=== PATIENT | male | born 1975 | race Caucasian/White ===

== ENCOUNTER 2017-02-23 15:13 | Emergency (ER) | payer BC ==
[2017-02-23 15:35] VITALS: BP 135/61
--- NOTE | 2017-02-23 16:35 | UC ---
Eye Complaint HPI - History of Current Complaint Chief Complaint: Austyn Stated Complaint: EYE IRRIATION Time Seen by Provider: 02/23/17 16:34 - Allergies/Home Medications Allergies/Adverse Reactions: Allergies Allergy/AdvReac Type Severity Reaction Status Date / Time Nuts Allergy Anaphylatic Uncoded 02/23/17 15:35 Shock PMH/Surg Hx/FS Hx/Imm Hx Other History Of: Negative For: HIV, Hepatitis B, Hepatitis C, Anticoagulant Therapy - Surgical History Surgical History: None - Family History Known Family History: Negative: Cardiac Disease, Hypertension, Diabetes - Social History Alcohol Use: Occasionally Substance Use Type: None Smoking Status (MU): Never Smoked Tobacco Physical Exam Vital Signs: Initial Vital Signs Temp 98.0 F 02/23/17 15:30 Pulse 61 02/23/17 15:30 Resp 18 02/23/17 15:30 BP 135/61 02/23/17 15:30 Pulse Ox 100 02/23/17 15:30
--- NOTE | 2017-02-23 16:57 | UC ---
Epistaxis Nasal HPI - HPI Summary HPI Summary: 41 y/o male presents to the urgent care c/o sinus congestion w/ left side of nose and below the left eye swollen for the past 5 days. Pt states it is getting worse today. He had a recent sunburn over his nose which is now resolving. However he has yellowish nasal drainage and mild sinus pressure and pain. Pt denies fever,cough, SOB, chest pain, dizziness, abdominal pain, N/V/ D. Pt has not other complains. - History of Current Complaint Chief Complaint: UCSkin Stated Complaint: EYE IRRIATION Time Seen by Provider: 02/23/17 16:34 Hx Obtained From: Patient Onset/Duration: Gradual Onset, Lasting Days, Still Present Timing: Intermittent Episode Lasting Severity Initially: Mild Severity Currently: Moderate Pain Intensity: 2 Pain Scale Used: 0-10 Numeric Character: Light - yellowish drainage Alleviating Factor(s): Ice Associated Signs And Symptoms: Positive: Sinus Pain, Nasal Discharge - w/ yellowish discharge - Allergies/Home Medications Allergies/Adverse Reactions: Allergies Allergy/AdvReac Type Severity Reaction Status Date / Time Nuts Allergy Anaphylatic Uncoded 02/23/17 15:35 Shock PMH/Surg Hx/FS Hx/Imm Hx Previously Healthy: Yes Other Endocrine History: L[place] Respiratory History: Asthma Other History Of: Negative For: HIV, Hepatitis B, Hepatitis C, Anticoagulant Therapy - Surgical History Surgical History: None - Family History Known Family History: Positive: None Negative: Cardiac Disease, Hypertension, Diabetes - Social History Occupation: Employed Full-time Lives: With Family Alcohol Use: Occasionally Substance Use Type: None Smoking Status (MU): Never Smoked Tobacco Review of Systems Constitutional: Negative Skin: Negative Eyes: Negative ENT: Nasal Discharge, Sinus Congestion, Sinus Pain/Tenderness - B/L Respiratory: Negative Cardiovascular: Negative Gastrointestinal: Negative Genitourinary: Negative Motor: Negative Neurovascular: Negative Musculoskeletal: Negative Neurological: Negative Psychological: Negative All Other Systems Reviewed And Are Negative: Yes Physical Exam Triage Information Reviewed: Yes Appearance: Well-Appearing, No Pain Distress, Well-Nourished Vital Signs: Initial Vital Signs Temp 98.0 F 02/23/17 15:30 Pulse 61 02/23/17 15:30 Resp 18 02/23/17 15:30 BP 135/61 02/23/17 15:30 Pulse Ox 100 02/23/17 15:30 Vital Signs Reviewed: Yes Eye Exam: Normal Eyes: Positive: Conjunctiva Clear - PERRLA, EOMI, fundi grossly normal ENT: Positive: Normal ENT inspection, Hearing grossly normal, Pharynx normal, Nasal congestion - moderate edematous and erythematous nasal mucosa w/ moderate yellowish nasal drainage. tender to palaption matthew the maxillary sinus LF>RT. mild swelling over left maxillary sinusis, TMs normal Dental Exam: Normal Neck exam: Normal Neck: Positive: Supple, Nontender, No Lymphadenopathy Respiratory Exam: Normal Respiratory: Positive: Chest non-tender, Lungs clear, Normal breath sounds Cardiovascular Exam: Normal Cardiovascular: Positive: RRR, No Murmur, Pulses Normal, Brisk Capillary Refill Abdominal Exam: Normal Abdomen Description: Positive: Nontender, No Organomegaly, Soft. Negative: CVA Tenderness (R), CVA Tenderness (L) Bowel Sounds: Positive: Present Musculoskeletal Exam: Normal Musculoskeletal: Positive: Strength Intact, ROM Intact, No Edema Neurological Exam: Normal Psychological Exam: Normal Skin Exam: Normal Skin: Positive: Other - nose w/ mild erythema s/p sunburn, non tender to palpation. Epistaxis Nasal Course/Dx - Course Course Of Treatment: 41 y/o male presents to the urgent care c/o sinus congestion w/ left side of nose and below the left eye swollen for the past 5 days. Pt states it is getting worse today. He had a recent sunburn over his nose which is now resolving. However he has yellowish nasal drainage and mild sinus pressure and pain. Pt denies fever,cough, SOB, chest pain, dizziness, abdominal pain, N/V/D. Hx obtained. Pt w/ moderate sinusitis. Pt is going on a trip to [place] in requested [place] in case his sinusitis do not imporve. Pt Rx amoxicillin PO, Flonase and Ibuprofen PO to alleviate symptoms. Advised if symptoms do not improve or worsen to f/u w/ his PCP for further management. Pt understood and agreed. - Differential Dx/Diagnosis Differential Diagnosis/HQI/PQRI: Allergic Rhinitis, Sinusitis, Other - sunburn, pharyngits, URI. Provider Diagnoses: 1- acute bacterial sinusitis Discharge - Discharge Plan Condition: Stable Disposition: HOME Prescriptions: Amoxicillin/Clavulanate TAB* [Augmentin TAB 875*] 875 mg PO BID #20 tab Fluticasone NASAL SPRAY 50MCG* [Flonase NASAL SPRAY 50MCG*] 2 spray BOTH NARES DAILY #1 btl Ibuprofen TAB* [Motrin TAB* 800 MG] 800 mg PO Q6H #20 tab Patient Education Materials: Sinusitis (ED) Referrals: No Primary Care Phys,NOPCP [Medical Doctor] - [facility] [[facility]] - 2 Days Additional Instructions: Please take full course of antibiotic to avoid resistance. Take ibuprofen as instructed after meals to alleviate pain and swelling. If symptoms do not improve or worsen please return to the urgent care or f/u with your PCP for further evaluation and treatment.
== END 2017-02-23 17:07 | disposition home or self-care (01) ==
LOC: UCEAST 15:13
DX: J01.80 Other acute sinusitis (principal); B96.89 Other specified bacterial agents as the cause of diseases classified elsewhere; J45.909 Unspecified asthma, uncomplicated; Z91.018 Allergy to other foods; Z86.19 Personal history of other infectious and parasitic diseases
CPT/HCPCS: 99212; G0463

== ENCOUNTER 2017-02-25 07:15 | Emergency (ER) | payer BC ==
[2017-02-25 07:40] VITALS: BP 121/79
--- NOTE | 2017-02-25 08:40 | UC ---
Skin Complaint HPI - HPI Summary HPI Summary: 3 DAYS OF LEFT LOWER EYELID EDEMA. NO PAIN WITH EOM. NO FB SENSATION. NO EYE REDNESS OR IRRITATION. NO ALANIS, NAUSEA OR FEVER. NO VISUAL DISTURBANCE. DID SUSTAIN A BLISTERING SUNBURN TO HIS NOSE PRIOR TO ONSET OF SYMPTOMS. SEEN HERE 2 DAYS AGO AND IS ON AUGMENTIN FOR A SINUS INFECTION. - History of Current Complaint Chief Complaint: UCEye Time Seen by Provider: 02/25/17 07:27 Stated Complaint: SINUS COMPLAINT Hx Obtained From: Patient Onset/Duration: Gradual Onset, Lasting Days, Still Present Timing: Constant Onset Severity: Moderate Current Severity: Moderate Pain Intensity: 3 Pain Scale Used: 0-10 Numeric Character: Swelling Aggravating: Nothing Alleviating: Nothing Associated Signs & Symptoms: Negative: Nausea, Difficulty Breathing, Fever, Cough, Tenderness, Red Streaks - Allergy/Home Medications Allergies/Adverse Reactions: Allergies Allergy/AdvReac Type Severity Reaction Status Date / Time Nuts Allergy Anaphylatic Uncoded 02/25/17 07:36 Shock Review of Systems Constitutional: Negative Eyes: Other - LEFT LOWER EYELID SWELLING Cardiovascular: Negative Gastrointestinal: Negative All Other Systems Reviewed And Are Negative: Yes PMH/Surg Hx/FS Hx/Imm Hx Previously Healthy: Yes Other History Of: Negative For: HIV, Hepatitis B, Hepatitis C, Anticoagulant Therapy - Surgical History Surgical History: None - Family History Known Family History: Positive: None Negative: Cardiac Disease, Hypertension, Diabetes - Social History Alcohol Use: Occasionally Substance Use Type: None Smoking Status (MU): Never Smoked Tobacco Physical Exam Triage Information Reviewed: Yes Appearance: Well-Appearing, No Pain Distress, Well-Nourished Vital Signs: Initial Vital Signs Temp 36.6 F 02/25/17 07:37 Pulse 69 02/25/17 07:37 Resp 16 02/25/17 07:37 BP 121/79 02/25/17 07:37 Pulse Ox 97 02/25/17 07:37 Vital Signs Reviewed: Yes Eyes: Positive: Conjunctiva Clear, Other: - PERRL, EOMI. LEFT LOWER EYELID EDEMA. NO REDNESS, NOT TENDER. Negative: Discharge ENT: Positive: Hearing grossly normal, Pharynx normal Neck: Positive: Supple Respiratory: Positive: No respiratory distress, No accessory muscle use Cardiovascular: Positive: Pulses Normal Abdomen Description: Positive: Soft Musculoskeletal: Positive: ROM Intact Neurological: Positive: Alert Psychological: Positive: Age Appropriate Behavior Skin: Negative: rashes Course/Dx - Diagnoses Provider Diagnoses: LEFT LOWER EYELID EDEMA SECONDARY TO SUNBURN Discharge - Discharge Plan Condition: Stable Disposition: HOME Patient Education Materials: Sunburn (ED) Referrals: Gloria Cerna MD [Primary Care Provider] - If Needed Additional Instructions: THE SWELLING IN YOUR EYELID IS LIKELY THE RESULT OF THE SUNBURN YOU SUSTAINED AND YOUR BODY WILL RESORB THE FLUID WITH TIME. SEEK FOLLOW-UP IF YOU DEVELOP INCREASING SWELLING, REDNESS, PAIN, FEVER, EYE INVOLVEMENT OR ANY OTHER CONCERNING SYMPTOMS.
== END 2017-02-25 08:35 | disposition home or self-care (01) ==
LOC: UCEAST 07:15
DX: H02.845 Edema of left lower eyelid (principal); L55.9 Sunburn, unspecified; Z91.018 Allergy to other foods
CPT/HCPCS: 99211; G0463

== ENCOUNTER 2017-04-28 10:35 | Emergency (ER) | payer BC ==
[2017-04-28 11:06] VITALS: BP 120/82
--- NOTE | 2017-05-11 16:33 | UC ---
Benton Roth Angela, scribed for Etta Allen DO on 04/28/17 at 1129 . General HPI - HPI Summary HPI Summary: This pt is a 41 y/o male presenting to [facility] c/o sore throat, runny nose, cough x5 days. Pt reports he had strep throat (for 2 weeks) and was prescribed a Z- pack for 5 days. He was treated based on his symptoms. Pt notes his symptoms were alleviated and was fine for 3-4 days. For the past 5 days, pt states his symptoms have returned but this time they are a little different. Associated symptoms include scratchy throat, myalgia, sinus congestion, and cough. He notes he had difficulty sleeping last night (only sleeping 2 hours) secondary to cough. He states he feels fluid in his lungs. Pt denies bloody sputum. He notes his asthma has been exacerbated a little. Pt denies sinus headache, nausea , vomiting, abd pain, fever, chest pain. Pt reports having an eczema flare up recently. He states having sick contacts at home. No PMHx. Pt does not use tobacco. - History of Current Complaint Chief Complaint: UCRespiratory Stated Complaint: SOAR THROAT Time Seen by Provider: 04/28/17 11:26 Hx Obtained From: Patient Onset/Duration: Lasting Days Timing: Constant Pain Intensity: 3 - out of 10 Associated Signs & Symptoms: Positive: Cough, Other - runny nose, sore throat, sinus congestion, body ache, eczema. Negative: Abdominal Pain, Chest Pain, Diarrhea, Fever, Headache, Nausea, Vomiting Related Hx: Recent Illness - strep throat - Allergy/Home Medications Allergies/Adverse Reactions: Allergies Allergy/AdvReac Type Severity Reaction Status Date / Time Nuts Allergy Anaphylatic Uncoded 04/28/17 11:06 Shock PMH/Surg Hx/FS Hx/Imm Hx Other Endocrine History: DENIES: diabetes Other Cardiovascular History: DENIES: HTN Other History Of: Negative For: HIV, Hepatitis B, Hepatitis C, Anticoagulant Therapy - Surgical History Surgical History: None - Family History Known Family History: Negative: Cardiac Disease, Hypertension, Diabetes - Social History Alcohol Use: Occasionally Substance Use Type: None Smoking Status (MU): Never Smoked Tobacco Review of Systems Constitutional: Negative Skin: Other - eczema flare up Eyes: Negative ENT: Sore Throat, Nasal Discharge - runny nose, Sinus Congestion, Other - NEG: sinus headache Respiratory: Cough Cardiovascular: Negative Gastrointestinal: Negative Genitourinary: Negative Motor: Negative Neurovascular: Negative Musculoskeletal: Myalgia - generalized body ache Neurological: Negative Psychological: Negative All Other Systems Reviewed And Are Negative: Yes Physical Exam Triage Information Reviewed: Yes Appearance: Well-Appearing, No Pain Distress, Well-Nourished Vital Signs: Initial Vital Signs Temp 97.7 F 04/28/17 11:00 Pulse 54 04/28/17 11:00 Resp 16 04/28/17 11:00 BP 120/82 04/28/17 11:00 Pulse Ox 100 04/28/17 11:00 Vital Signs Reviewed: Yes Eyes: Positive: Conjunctiva Clear. Negative: Discharge ENT: Positive: Hearing grossly normal, Other: - normal voice. Negative: Muffled /hoarse voice Neck exam: Normal Neck: Positive: Supple Respiratory: Positive: Lungs clear, Normal breath sounds, No respiratory distress, No accessory muscle use Cardiovascular: Positive: RRR, No Murmur Musculoskeletal Exam: Normal Neurological: Positive: Alert, Muscle Tone Normal Psychological Exam: Normal Psychological: Positive: Age Appropriate Behavior Skin Exam: Normal Skin: Positive: Other - warm, dry, normal color Course/Dx - Course Course Of Treatment: Medications reviewed this visit. High blood pressure noted. Rapid strep test is negative. - Differential Dx - Multi-Symptom Provider Diagnoses: Elevated BP without diagnosis of HTN. Upper respiratory infection Discharge - Discharge Plan Condition: Stable Disposition: HOME Prescriptions: Benzonatate CAP* [Tessalon 100 MG CAP*] 100 mg PO TID PRN #31 cap PRN Reason: Cough guaiFENesin ER TAB [Mucinex*] 600 mg PO BID PRN #1 box PRN Reason: Cough guaiFENesin/CODIEN 100MG-10MG* [Robitussin AC 100Mg-10Mg*] 5 - 10 ml PO BEDTIME PRN #100 udc MDD 10ml PRN Reason: Cough Patient Education Materials: Upper Respiratory Infection (ED) Referrals: Gloria Cerna MD [Primary Care Provider] - Additional Instructions: TRY USING THE NETTI POT IN THE MORNINGS DISCUSSED. YOU MUST ALWAYS USE CLEAN WATER. COUGH-SUPPRESSANT & EXPECTORANT MEDICATION: You are to use a cough medication as needed for relief of symptoms. This medicine is a combination of an expectorant (to make the mucous thinner and more easily "coughed up") and a cough suppressant (to reduce the frequency of coughing). The cough-suppressant medicine is related to narcotics. You may experience mild nausea and sleepiness. Some patients who are very sensitive to narcotics may have stomach pain from this medicine. Taking the medicine with food reduces these side effects. Do not drive or work with machinery until you know how this medicine affects you. The expectorant should have no side effects. Iodine-containing expectorants (such as organidin) should not be taken by persons with active thyroid disease unless approved by your doctor. Call the doctor if you develop shortness of breath, hives, rash, itching, lightheadedness, or severe nausea and vomiting. EXPECTORANT MEDICATION: WE SENT IN A SCRIPT FOR MUCINEX SO THAT IT IS EASIER FOR YOU TO PICK THE RIGHT MED AT THE PHARMACY. HOWEVER, YOU CAN ALSO GO TO THE [employer] [facility] AND BUY PLAIN GUAIFENESIN WITHOU BINDERS OR FILLERS. An expectorant medicine has been prescribed. This type of drug makes mucous thinner, helping the sinuses, nose, and bronchial tubes to remain free of pus and mucous. Expectorants make a cough less severe and more comfortable, and help infected sinuses drain. In general, antihistamines defeat the purpose of the expectorant by making mucous thicker. They should be avoided unless specifically recommended by your physician. TESSALON PERLES: You have received a prescription for Tessalon Perles (benzonatate). This is a non-narcotic medicine for relief of cough. It usually works in about 15- 20 minutes and lasts around four hours. Tessalon Perles should be swallowed. They should not be chewed or dissolved in the mouth (this can produce temporary numbing of the mouth and choking can occur). If you develop any adverse effects such as wheezing, shortness of breath, hives, rash, itching, or lightheadedness, please return at once. YOUR RAPID STREP WAS NEGATIVE. Your blood pressure was elevated at this visit. That does not mean you have hypertension, it is probably due to your current condition. Please follow up with your primary care provider. The documentation as recorded by the Benton briggs Angela accurately reflects the service I personally performed and the decisions made by me, Etta Allen DO.
== END 2017-04-28 12:34 | disposition home or self-care (01) ==
LOC: UCEAST 10:35
DX: J06.9 Acute upper respiratory infection, unspecified (principal); R03.0 Elevated blood-pressure reading, without diagnosis of hypertension
CPT/HCPCS: 87651; 99212; G0463

== ENCOUNTER 2017-10-02 12:54 | Inpatient (IN) | payer BC ==
[2017-10-02] MEDS ORDERED: Ondansetron INJ* 2 MG/ML VIAL IV ONE (14:51)
[2017-10-02] MEDS ORDERED: Morphine INJ* 4 MG/ML 1 ML SYRINGE (NEW SYRINGE VERSION) IV ONE (14:52)
[2017-10-02] MEDS ORDERED: Ondansetron ODT TAB* 4 MG ONE (15:21)
[2017-10-02] MEDS ORDERED: Ondansetron ODT TAB* 4 MG PO ONE (15:22)
[2017-10-02 15:25] LABS: ABS Basophils 0 10^3/ul (0-0.2); ABS Eosinophils 0.1 10^3/ul (0-0.6); ABS Lymphocytes 0.6 10^3/ul (1.0-4.8); ABS Monocytes 0.4 10^3/ul (0-0.8); ABS Neutrophils 13.6 10^3/ul (1.5-7.7); ABS Nucleated RBC 0 10^3/ul; Eosinophil % 0.6 % (0-6); Hematocrit 42 % (42-52); Hemoglobin 14.6 g/dl (14.0-18.0); Lymphocyte % 4.1 % (25-47); Mean Corpuscular HGB Conc 35 g/dl (31-36); Mean Corpuscular Hemoglobin 32 pg (27-31); Mean Corpuscular Volume 91 fL (80-94); Mean Platelet Volume 9 um3 (7.4-10.4); Nucleated Red Blood Cells % 0; Platelet Count 197 10^3/ul (150-450); Red Blood Count 4.58 10^6/ul (4.0-5.4); Red Cell Distribution Width 14 % (10.5-15); White Blood Count 14.7 10^3/ul (3.5-10.8)
[2017-10-02 15:52] LABS: EGFR Non-African American 82.9 (>60)
[2017-10-02] MEDS ORDERED: Iohexol 300* (CONTRAST) 10 ML SDV IV ONE (15:59)
[2017-10-02] MEDS ORDERED: HYDROmorphone INJ* 1 MG/ML CARPUJECT SYRINGE IV SLOW PU ONE (16:39)
--- NOTE | 2017-10-02 16:41 | RAD ---
INDICATION: Fall, back, left upper quadrant pain. COMPARISON: Comparison is made with a prior CT of the abdomen and pelvis from December 04, 2011. TECHNIQUE: A CT scan of the chest, abdomen and pelvis was performed with intravenous and without oral contrast following intravenous injection of 99 ml of Omnipaque 300 nonionic contrast. Contiguous axial sections were obtained from the lung apices through the symphysis pubis. Images were reconstructed in the coronal and sagittal planes. FINDINGS: There is mild dependent bilateral lower lobe subsegmental atelectasis. No pleural effusion or pneumothorax is seen. No significant enlarged mediastinal or hilar lymph nodes are seen. The heart is within normal limits in size. No pericardial effusion is present. The aorta is normal in caliber and demonstrates homogeneous contrast opacification. The liver and spleen are normal in size without significant focal abnormality. No calcified gallstones are seen. The pancreas appears to be within normal limits in size. The kidneys and adrenal glands are normal in size. There is no evidence for hydronephrosis. No significant focal renal abnormality is seen. The aorta is normal in caliber and demonstrates homogeneous contrast opacification. No significant enlarged retroperitoneal lymph nodes are seen. There is a small hiatal hernia. The stomach, small and large bowel appear nondistended. The appendix appears to be within normal limits. No free intraperitoneal air or fluid is seen. There is a burst fracture of the T12 vertebral body with loss of height of approximately 25%. There is mild retropulsion of fracture fragments into the anterior spinal canal approximately 4 mm. There is also a mild chronic compression fracture of the superior endplate of the T4 vertebral body. IMPRESSION: 1. BURST FRACTURE OF THE T12 VERTEBRAL BODY WITH MILD RETROPULSION OF FRACTURE FRAGMENTS INTO THE ANTERIOR SPINAL CANAL. 2. NO EVIDENCE FOR ACUTE INTRA-ABDOMINAL ABNORMALITY.
--- NOTE | 2017-10-02 16:43 | ED ---
Adult Trauma - HPI Summary HPI Summary: 42-year-old male presents with back pain after falling off a ski jump and landed on his back. Her was snow boarding and went off a jump wrong. He denies any head injury or loss conscious. Denies any neck pain. He states he has lower back pain radiates to the front of his abdomen. He denies any lower or upper extremity pain. He states he landed on his lower back and tailbone. States pain is greatest in the lower back. He denies any numbness or tingling. He denies any loss of bowel or bladder or saddle anesthesia. He was able to ambulate afterwards. He states he is an 10 out of 10 pain. He denies any chest pain or SOB. He has no medical conditions. He denies any nausea or vomiting. - History of Current Complaint Chief Complaint: EDGeneral Stated Complaint: FALL Time Seen by Provider: 10/02/17 14:42 Pain Intensity: 9 - Allergy/Home Medications Allergies/Adverse Reactions: Allergies Allergy/AdvReac Type Severity Reaction Status Date / Time nut - unspecified Allergy Severe Anaphylatic Verified 10/02/17 15:16 Shock PMH/Surg Hx/FS Hx/Imm Hx Endocrine/Hematology History: Denies: Hx Anticoagulant Therapy, Hx Diabetes, Hx Thyroid Disease Cardiovascular History: Denies: Hx Congestive Heart Failure, Hx Deep Vein Thrombosis, Hx Hypertension , Hx Myocardial Infarction, Hx Pacemaker/ICD Respiratory History: Reports: Hx Asthma - As a child--has not used an inhaler in "a while." Denies: Hx Chronic Obstructive Pulmonary Disease (COPD), Hx Lung Cancer, Hx Pneumonia, Hx Pulmonary Embolism GI History: Denies: Hx Gall Bladder Disease, Hx Gastrointestinal Bleed, Hx Ulcer, Hx Urosepsis History: Denies: Hx Kidney Stones, Hx Renal Disease Neurological History: Denies: Hx Dementia, Hx Migraine, Hx Seizures, Hx Transient Ischemic Attacks (TIA) Psychiatric History: Denies: Hx Anxiety, Hx Depression, Hx Schizophrenia, Hx Bipolar Disorder Infectious Disease History: No Infectious Disease History: Denies: History Other Infectious Disease, Traveled Outside the [place] in Last 30 Days - Family History Known Family History: Positive: None Negative: Cardiac Disease, Hypertension, Diabetes - Social History Alcohol Use: Occasionally Substance Use Type: Reports: None Smoking Status (MU): Never Smoked Tobacco Review of Systems Negative: Fever Negative: Chest Pain Negative: Shortness Of Breath Positive: Abdominal Pain Positive: Myalgia - back pain All Other Systems Reviewed And Are Negative: Yes Physical Exam Triage Information Reviewed: Yes Vital Signs On Initial Exam: Initial Vitals Temp Pulse Resp BP Pulse Ox 97.8 F 66 24 106/51 100 10/02/17 13:23 10/02/17 13:23 10/02/17 13:23 10/02/17 13:23 10/02/17 13:23 Vital Signs Reviewed: Yes Appearance: Positive: Well-Appearing Skin: Positive: Warm, Dry Head/Face: Positive: Normal Head/Face Inspection, Other - no step off, racoon eyes, du sign Eyes: Positive: Normal, EOMI, KERVIN, Conjunctiva Clear ENT: Positive: Normal ENT inspection, Pharynx normal, TMs normal Neck: Positive: Other: - nontender neck, full ROM of neck Respiratory/Lung Sounds: Positive: Clear to Auscultation, Breath Sounds Present Cardiovascular: Positive: Normal, RRR Abdomen Description: Positive: Soft, Other: - tenderness LUQ Bowel Sounds: Positive: Present Musculoskeletal: Positive: Strength/ROM Intact - upper and lower extermities, Other - tenderness T10-L5, nontender lower extremities and upper extremities Neurological: Positive: Normal Psychiatric: Positive: Normal Diagnostics - Vital Signs Vital Signs Temp Pulse Resp BP Pulse Ox 10/02/17 15:37 86 97 10/02/17 15:35 16 10/02/17 13:23 97.8 F 66 24 106/51 100 - Laboratory Lab Results: Lab Results 10/02/17 10/02/17 Range/Units 15:13 15:13 WBC 14.7 H (3.5-10.8) 10^3/ul RBC 4.58 (4.0-5.4) 10^6/ul Hgb 14.6 (14.0-18.0) g/dl Hct 42 (42-52) % MCV 91 (80-94) fL MCH 32 H (27-31) pg MCHC 35 (31-36) g/dl RDW 14 (10.5-15) % Plt Count 197 (150-450) 10^3/ul MPV 9 (7.4-10.4) um3 Neut % (Auto) 92.4 H (38-83) % Lymph % (Auto) 4.1 L (25-47) % Sac % (Auto) 2.8 (0-7) % Eos % (Auto) 0.6 (0-6) % Baso % (Auto) 0.1 (0-2) % Absolute Neuts (auto) 13.6 H (1.5-7.7) 10^3/ul Absolute Lymphs (auto) 0.6 L (1.0-4.8) 10^3/ul Absolute Monos (auto) 0.4 (0-0.8) 10^3/ul Absolute Eos (auto) 0.1 (0-0.6) 10^3/ul Absolute Basos (auto) 0 (0-0.2) 10^3/ul Absolute Nucleated RBC 0 10^3/ul Nucleated RBC % 0 Sodium 135 (133-145) mmol/L Potassium 4.0 (3.5-5.0) mmol/L Chloride 100 L (101-111) mmol/L Carbon Dioxide 27 (22-32) mmol/L Anion Gap 8 (2-11) mmol/L BUN 19 (6-24) mg/dL Creatinine 0.99 (0.67-1.17) mg/dL Est GFR ( Amer) 106.6 (>60) Est GFR (Non-Af Amer) 82.9 (>60) BUN/Creatinine Ratio 19.2 (8-20) Glucose 118 H (70-100) mg/dL Calcium 9.4 (8.6-10.3) mg/dL Total Bilirubin 1.80 H (0.2-1.0) mg/dL AST 33 (13-39) U/L ALT 28 (7-52) U/L Alkaline Phosphatase 45 (34-104) U/L Total Protein 7.1 (6.4-8.9) g/dL Albumin 4.5 (3.2-5.2) g/dL Globulin 2.6 (2-4) g/dL Albumin/Globulin Ratio 1.7 (1-3) Result Diagrams: 10/02/17 15:13 10/02/17 15:13 Lab Statement: Any lab studies that have been ordered have been reviewed, and results considered in the medical decision making process. - CT chest, abd, pelvic CT Interpretation: Positive (See Comments) - IMPRESSION: 1. BURST FRACTURE OF THE T12 VERTEBRAL BODY WITH MILD RETROPULSION OF FRACTURE FRAGMENTS INTO THE ANTERIOR SPINAL CANAL. 2. NO EVIDENCE FOR ACUTE INTRA-ABDOMINAL ABNORMALITY. CT Interpretation Completed By: Radiologist Adult Trauma Course/Dx - Course Course Of Treatment: 42-year-old male presents with back pain after falling off a ski jump and landed on his back. Her was snow boarding and went off a jump wrong. He denies any head injury or loss conscious. Denies any neck pain. He states he has lower back pain radiates to the front of his abdomen. He denies any lower or upper extremity pain. He states he landed on his lower back and tailbone. States pain is greatest in the lower back. He denies any numbness or tingling. He denies any loss of bowel or bladder or saddle anesthesia. He was able to ambulate afterwards. He states he is an 10 out of 10 pain. He denies any chest pain or SOB. He has no medical conditions. He denies any nausea or vomiting. on exam nontender neck. tenderness T10-L5. tenderness LUQ abdomen. CT shows burst fracture T12. dr ramos seen in ED and states needs surgery. hospitalist do not feel comfortable admitting a trauma. discusssed with dr garnett who will admit. suggested get MRI and xray back. - Diagnoses Differential Diagnosis/HQI/PQRI: Positive: Contusion(s), Fracture, Strain Provider Diagnoses: Burst fracture of T12 vertebra, Fall Discharge - Discharge Plan Condition: Stable Disposition: ADMITTED TO [facility]
[2017-10-02] MEDS ORDERED: Metoclopramide IV* 5 MG/ML 2 ML VIAL IV SLOW PU ONE (16:52)
[2017-10-02] MEDS ORDERED: Metoclopramide IV* 5 MG/ML 2 ML VIAL ONE (16:52)
--- NOTE | 2017-10-02 20:36 | RAD ---
INDICATION: Trauma. COMPARISON: There are no prior studies available for comparison. TECHNIQUE: Contiguous axial sections were obtained from the skull base through the T2 vertebra. Images were reconstructed in the sagittal and coronal planes. FINDINGS: There is straightening of the cervical spine with loss of the normal cervical lordosis. No prevertebral soft tissue swelling or fracture is seen. At the C4-C5 level there is a small central disc protrusion. No spinal canal or neural foraminal narrowing is seen. At the C5-C6 level there is mild posterior uncinate process spurring associated with a mild broad-based disc bulge. No significant spinal canal or neural foraminal narrowing is seen. At the C6-C7 level there is mild posterior uncinate process spurring associated with a mild broad-based disc bulge. No significant spinal canal narrowing is present. There is mild bilateral neural foraminal narrowing. The thyroid gland is heterogeneous with several small nodules measuring up to 0.6 cm in size. IMPRESSION: 1. STRAIGHTENING OF THE CERVICAL SPINE, NO EVIDENCE FOR FRACTURE OR SUBLUXATION. 2. MILD CERVICAL SPONDYLOSIS. 3. SMALL THYROID NODULES. RECOMMEND A FOLLOW-UP OUTPATIENT THYROID ULTRASOUND STUDY FOR FURTHER EVALUATION.
--- NOTE | 2017-10-02 21:41 | RAD ---
INDICATION: Trauma, dorsal spine fracture. COMPARISON: Comparison is made with a prior CT of the cervical spine from October 02, 2017. TECHNIQUE: Axial T2 and sagittal T1 and T2 and coronal T2-weighted images of the cervical spine were obtained. FINDINGS: There is straightening of the cervical spine with decrease in the normal cervical lordosis. The vertebra otherwise in normal alignment. The spinal cord is normal in shape and signal intensity. At the C4-C5 level there is a mild broad-based disc bulge which causes mild spinal canal narrowing. Neural foramen appear patent on both sides. At the C5-C6 level there is a mild broad-based disc bulge. There is mild spinal canal narrowing. Neural foramen appear patent on both sides. At the C6-C7 level there is a [id number] broad-based disc bulge causing mild spinal canal narrowing. There is mild bilateral neural foraminal narrowing. At the C7-T1 level there is a small central disc protrusion. No significant spinal canal or neural foraminal narrowing is seen. IMPRESSION: 1. STRAIGHTENING OF THE CERVICAL SPINE. 2. MILD TO MODERATE CERVICAL SPONDYLOSIS.
[2017-10-02] MEDS ORDERED: HYDROcodone/ACETAMIN 5-325 MG* 1 TAB PO PRN (22:05)
[2017-10-02] MEDS ORDERED: Morphine INJ* 2 MG/ML 1 ML CARPUJECT IV PRN (22:06)
[2017-10-02] MEDS ORDERED: Acetaminophen TAB* 325 MG PO PRN (22:06)
[2017-10-02] MEDS ORDERED: HYDROmorphone INJ* 1 MG/ML CARPUJECT SYRINGE IV SLOW PU PRN (22:07)
--- NOTE | 2017-10-02 22:14 | RAD ---
INDICATION: T12 fracture. COMPARISON: Comparison is made with a prior CT of the chest and abdomen from October 02, 2017. TECHNIQUE: Axial and sagittal T1 and T2-weighted images of the dorsal spine were obtained. FINDINGS: There is a mild dorsal scoliosis convex toward the right side. Again note is made of a burst fracture of the T12 vertebral body with loss of height of approximately 25%. There is mild retropulsion of fracture fragments into the anterior spinal canal of approximately 4 mm. This effaces the anterior thecal sac and abuts the spinal cord without deformity. No epidural hematoma is seen. At the T9-T10 level there is a small to moderate size central disc protrusion which causes mild spinal cord impingement. No other significant disc abnormalities are seen. Neural foramen appear patent bilaterally at all levels. IMPRESSION: 1. THERE IS A BURST FRACTURE OF THE T12 VERTEBRAL BODY WITH MILD RETROPULSION OF FRACTURE FRAGMENTS INTO THE ANTERIOR SPINAL CANAL. 2. AT THE T9-T10 LEVEL THERE IS A SMALL TO MODERATE SIZE CENTRAL DISC PROTRUSION WHICH CAUSES MILD SPINAL CORD IMPINGEMENT.
[2017-10-02] MEDS ORDERED: HYDROmorphone INJ* 1 MG/ML CARPUJECT SYRINGE ONE (22:16)
[2017-10-02 22:42] LABS: INR 0.98 (0.77-1.02)
[2017-10-03] MEDS: HYDROmorphone INJ* 2 MG/ML CARPUJECT SYRINGE IV SLOW PU PRN ×2 (02:03→07:27)
--- NOTE | 2017-10-03 05:28 | HP ---
ADMISSION NOTE HISTORY AND PHYSICAL: DATE OF ADMISSION: 10/02/17 HISTORY OF PRESENT ILLNESS: The patient is a very pleasant 42-year-old gentleman without significant past medical history, who presented to the emergency room after reported to have sustained a fall while he was snowboarding and patient reports that he did the jump and he landed on his back. He did not hit his head. He did not lose his consciousness. He had significant back pain, but was able to ambulate and make it to the hospital. The patient denies any headache. Denies any nausea or vomiting. Denies any vision or speech problem. Denies any seizures. He denies any weakness, numbness or tingling of extremities. He denies any urinary or GI incontinence. He reports his feeling sensation is intact. He denies any pain in his cervical or lumbar spine and he denies any other pain. Requested to see the patient by emergency room because of CT scan finding consistent with a T12 burst fracture. The patient is accompanied by his . 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 They have 5 children. PAST MEDICAL HISTORY: The patient has negative except history of asthma as a child. PAST SURGICAL HISTORY: Negative. MEDICATIONS: Negative. ALLERGIES: PEANUT. No known drug allergies. FAMILY HISTORY: Noncontributory. SOCIAL HISTORY: Tobacco negative. Alcohol negative. Recreational use negative. PHYSICAL EXAMINATION GENERAL: The patient is not in acute distress. He is awake, alert, oriented x3. HEENT: His pupils are equal and reactive. NEUROLOGIC: Cranial nerves II through XII grossly intact. Motor 4 to 5/5 in lower extremities. Sensory grossly intact to light touch. Deep tendon reflexes +1 bilaterally. No clonus. No Babinski. Karen's negative. Straight leg raise negative in the sitting position. The patient has no tenderness to palpation of the cervical and lumbar spine. He has some mild tenderness in the lower thoracic spine. The patient has free range of motion of the cervical spine. His rectal tone is present and his perineal sensation is intact. The patient has free range of motion in all extremities without any tenderness to palpation. DIAGNOSTIC STUDIES/LABORATORY DATA: The patient had CT scan of his abdomen and pelvis that revealed a T12 burst fracture with minimal retropulsion with also horizontal splint configuration. ASSESSMENT: The patient is a very pleasant 43-year-old gentleman who was reporting to have sustained a fall while snowboarding with complaints of back pain and CT findings consistent with a T12 burst fracture. PLAN: The patient at this point has significant back pain. His TLICS score is 4. Because of the nature of his fracture and patient's complaint, we would offer the patient the option of surgical intervention in the form of thoracolumbar fusion. We discussed nonoperative and operative treatment options as well as a pros and cons of each approach and possible outcomes. After explaining to the patient and his expectations, limitations, and possible complications of the procedure with complications including, but not limited to bleeding, infection, risk of injury to adjacent structures, coma, paralysis, , need for additional procedure, anesthesia risk, stroke, blindness, cancer , instability, need for additional procedures in the future, loss of bladder or bowel control, loss of use of lower extremities, continued pain, kyphosis, need for additional procedure in a staged fashion, injury of abdominal contents, possible prolonged ICU stay. The patient and his were agreeable to proceed with surgery. They understand that his condition may not improve, and in fact may get worse after surgery. They also understand that he may need additional procedures in the future and possible anterior surgery if needed. We discussed the possibility of pseudoarthrosis and adjacent level disease. Also, patient called on his mobile phone and we discussed on the phone with Dr Staton who is a friend of the family regarding patient's condition. At this point, I will obtain CT scan of his cervical spine as well as MRI of the cervical spine as well as an MRI of his thoracic spine as well as plain x-rays of his thoracic and lumbar spine. We will be keeping the patient on spine precautions and we will plan for surgical intervention once we obtain Internal Medicine clearance. According to the emergency room, there are no other identified injuries at this point. Please do not hesitate to contact our office in case you have any further questions or concerns regarding the care of this patient. Su Mancia MD [id number]/[facility] #: [id number] RAVINDER
[2017-10-03 06:18] LABS: ABS Basophils 0 10^3/ul (0-0.2); ABS Eosinophils 0.3 10^3/ul (0-0.6); ABS Lymphocytes 1.6 10^3/ul (1.0-4.8); ABS Monocytes 0.5 10^3/ul (0-0.8); ABS Neutrophils 4.2 10^3/ul (1.5-7.7); ABS Nucleated RBC 0 10^3/ul; Eosinophil % 4.2 % (0-6); Hematocrit 41 % (42-52); Hemoglobin 13.9 g/dl (14.0-18.0); Lymphocyte % 24.2 % (25-47); Mean Corpuscular HGB Conc 34 g/dl (31-36); Mean Corpuscular Hemoglobin 31 pg (27-31); Mean Corpuscular Volume 92 fL (80-94); Mean Platelet Volume 9 um3 (7.4-10.4); Nucleated Red Blood Cells % 0; Platelet Count 202 10^3/ul (150-450); Red Blood Count 4.41 10^6/ul (4.0-5.4); Red Cell Distribution Width 14 % (10.5-15); White Blood Count 6.6 10^3/ul (3.5-10.8)
[2017-10-03 06:33] LABS: EGFR Non-African American 82.9 (>60)
--- NOTE | 2017-10-03 07:38 | RAD ---
INDICATION: T12 fracture. COMPARISON: Comparison is made with a prior CT of the chest, abdomen and pelvis from October 02, 2017. TECHNIQUE: 3 views of the lumbar spine were obtained including lateral, AP and a coned-down lateral view of the lumbar sacral junction. FINDINGS: There is a burst fracture of the T12 vertebral body with loss of height of approximately 25%. There is mild retropulsion of fracture fragments arising from the superior posterior aspect of the vertebral body. Disc spaces appear maintained. IMPRESSION: BURST FRACTURE OF THE T12 VERTEBRAL BODY.
--- NOTE | 2017-10-03 08:09 | RAD ---
INDICATION: T12 fracture. COMPARISON: Comparison is made with a prior CT of the chest from October 02, 2017. TECHNIQUE: AP and lateral films of the dorsal spine were obtained. FINDINGS: Again note is made of a burst fracture of the T12 vertebral body with loss of height of approximately 25%. There is mild retropulsion of fracture fragments into the anterior spinal canal better seen on the prior CT study. There is a round 4 cm density which projects just to the right of the midline over the mediastinum at the level of the aortic arch which was not present on the prior CT possibly external to the patient. IMPRESSION: 1. T12 BURST FRACTURE NOTED ON THE PRIOR CT STUDY. 2. ROUND DENSITY PROJECTED OVER THE MEDIASTINUM AT THE LEVEL OF AORTIC ARCH LIKELY EXTERNAL TO THE PATIENT ALTHOUGH NONSPECIFIC. RECOMMEND REPEATING THE DORSAL SPINE SERIES. THE RESULTS OF THIS EXAM WERE DISCUSSED WITH THE PATIENT'S NEUROSURGEON.
[2017-10-03] MEDS ORDERED: Bacitracin IV* 50,000 UNITS INJ ONE ×2 (08:26→15:26)
[2017-10-03] MEDS ORDERED: Thrombin 5,000 UNITS* 1 APPLIC KIT - topical use - TOPICAL ONE (08:26)
[2017-10-03] MEDS ORDERED: Lidocaine 1% MPF wEPI 200,000* 30 ML SDV ONE (08:26)
--- NOTE | 2017-10-03 08:52 | RAD ---
INDICATION: T12 burst fracture, abnormal density over the mediastinum. COMPARISON: Comparison is made with a prior dorsal spine series from one day earlier. TECHNIQUE: AP and lateral films of the dorsal spine were obtained. FINDINGS: The density which projected over the mediastinum on the prior chest x-ray study correlates with a necklace which was present on the initial films and then were removed and the film was repeated. Again note is made of a burst fracture at T12 vertebral body. IMPRESSION: 1. THE DENSITY WHICH PROJECTED OVER THE MEDIASTINUM IS AN ARTIFACT AND CORRELATED WITH THE PATIENT'S NECKLACE. 2. T12 BURST FRACTURE.
[2017-10-03] MEDS ORDERED: Levalbuterol 1.25MG/0.5ML NEB ONE (09:26)
[2017-10-03] MEDS ORDERED: Famotidine IV* 10 MG/ML 2 ML (20 mg) ONE (09:31)
[2017-10-03] MEDS ORDERED: Famotidine IV* 10 MG/ML 2 ML (20 mg) IV ONE (09:31)
[2017-10-03] MEDS ORDERED: Levalbuterol 0.63MG/3ML NEB* UNIT OF USE INH ONE (09:31)
[2017-10-03] MEDS ORDERED: Artificial Tear OPHTH.OINT* 3.5 GM ONE (09:48)
[2017-10-03] MEDS ORDERED: Gelfoam Sponge SIZE 100* SPONGE ONE ×2 (09:50→09:52)
[2017-10-03] MEDS ORDERED: Propofol* 10 MG/ML 20 ML BTL IV PUSH ONE (09:54)
[2017-10-03] MEDS ORDERED: Phenylephrine INJ* 10 MG/ML 1 ML VIAL (10 MG) ONE (09:54)
[2017-10-03] MEDS ORDERED: Dexamethasone IV* 4 MG/ML 1 ML (4 MG) ONE (09:54)
[2017-10-03] MEDS ORDERED: Lidocaine 2% PF * 5 ML VIAL ONE (09:54)
[2017-10-03] MEDS ORDERED: fentaNYL* 50 MCG/ML 5 ML VIAL (250 MCG VIAL) ONE ×3 (09:54→17:20)
[2017-10-03] MEDS ORDERED: Ondansetron INJ* 2 MG/ML VIAL ONE ×2 (09:54→18:12)
[2017-10-03] MEDS ORDERED: Rocuronium* 10 MG/ML VIAL ONE ×3 (09:54→13:43)
[2017-10-03] MEDS ORDERED: KETAMINE HCL* 50 MG/ML 10 ML VIAL ONE (09:55)
[2017-10-03] MEDS ORDERED: Midazolam* 1 MG/ML 5 ML VIAL (5 MG) ONE (09:55)
[2017-10-03] MEDS ORDERED: ceFAZolin 2 GM (*##) 2 GM/100 ML BAG USE CEFA2SOL IVPB ONE ×3 (10:25→15:26)
--- NOTE | 2017-10-03 10:51 | RAD ---
INDICATION: Right chest pain evaluate for effusion. COMPARISON: Comparison is made with a prior CT of the chest from one day earlier. TECHNIQUE: A portable view of the chest was obtained. FINDINGS: Cardiac and mediastinal contours appear to be within normal limits. The lungs are underinflated and clear. No pleural effusion is seen. IMPRESSION: NO EVIDENCE FOR ACUTE FINDING.
--- NOTE | 2017-10-03 11:11 | RAD ---
Indication: Blunt abdominal trauma. Limited abdominal ultrasound was performed to evaluate for ascites. The liver is normal in size. No focal lesions or intrahepatic ductal dilatation is noted. No perihepatic ascites is noted. The gallbladder demonstrates no definite gallstones. Right lower quadrant demonstrates no evidence of free fluid. IMPRESSION: No evidence of ascites or free fluid is noted.
[2017-10-03] MEDS ORDERED: Midazolam* 1 MG/ML 2 ML VIAL (2 MG) ONE (11:35)
[2017-10-03] MEDS ORDERED: fentaNYL* 50 MCG/ML 2 ML VIAL (100 MCG VIAL) ONE (15:53)
[2017-10-03] MEDS ORDERED: HYDROmorphone INJ* 1 MG/ML CARPUJECT SYRINGE ONE (16:02)
[2017-10-03] MEDS ORDERED: Glycopyrrolate IV* 0.2 MG/ML 1 ML VIAL ONE (16:05)
[2017-10-03] MEDS ORDERED: Neostigmine Methylsulfate* 1 MG/ML 10 ML VIAL (1 mg/ml) ONE (16:05)
--- NOTE | 2017-10-03 16:45 | RAD ---
INDICATION: Thoracolumbar fusion COMPARISON: Lumbar spine October 02, 2017 FINDINGS: 11 minutes and 33 seconds of fluoroscopy were provided for the neurosurgical department. Fluoroscopic spot imaging of the thoracal lumbar spine were obtained for operative control. CPT II Codes: 6045F (fluoro time doc)
--- NOTE | 2017-10-03 16:46 | RAD ---
INDICATION: Thoracal lumbar fusion COMPARISON: Lumbar spine October 02, 2017 FINDINGS: 74.9 seconds of fluoroscopy were provided for the neurosurgical department. Fluoroscopic spot imaging of the spine were obtained for operative control. CPT II Codes: 6045F (fluoro time doc)
[2017-10-03] MEDS ORDERED: Naloxone* 0.4 MG/ML 1 ML VIAL IV PRN (17:06)
[2017-10-03] MEDS ORDERED: Ondansetron INJ* 2 MG/ML VIAL IV PRN (17:06)
[2017-10-03] MEDS ORDERED: Levalbuterol 0.63MG/3ML NEB* UNIT OF USE INH PRN (17:06)
[2017-10-03] MEDS: fentaNYL* 50 MCG/ML 2 ML VIAL (100 MCG VIAL) IV PRN ×3 (17:21→17:44)
--- NOTE | 2017-10-03 17:26 | CONS ---
AMENDED REPORT NOW INCLUDES DATE OF CONSULT - ESIGNED BEFORE ADJUSTMENTS CC: [facility]; Gloria Cerna MD * SURGICAL CONSULTATION REPORT: DATE OF CONSULT: 10/03/17 HISTORY OF PRESENT ILLNESS: I was contacted by the neurosurgery group to evaluate Mr. Krishnamurthy, a 42-year-old gentleman who was admitted to the emergency room yesterday with a diagnosis of T12 burst fracture after suffering a high speed fall off his snowboard. The patient had taken a ski jump and landed on his back. He got up, walked out. Denied any loss of consciousness. Did have back pain as well as right upper quadrant and right-sided pain. He ultimately presented to the emergency room hours later where he stated he had 10/10 pain, greatest at the lower back. Trauma workup included CT scan of the abdomen and pelvis and chest. Finding of T12 burst fracture was identified. No additional solid or hollow organ injury was identified in the abdomen and chest showed no rib fractures. The patient was admitted for this purpose. He was not on any anticoagulation. Patient does not take any medications. Patient was for planned OR today with the neurosurgery department, was taken down to the preoperative area where he was noted to continue to have right upper quadrant abdominal pain. Concern for undiagnosed injury secondary to the trauma was expressed by the anesthesia department and I was contacted for evaluation. PAST MEDICAL HISTORY: None. MEDICATIONS: None. ALLERGIES: He denies any drug allergies. REVIEW OF SYSTEMS: No headaches. He does have back pain. No shortness of breath. Some chest pain in the mid sternum extending towards the right side. No dysuria, no hematuria. Patient is on bed rest. PHYSICAL EXAM: Temperature 97.5, blood pressure 114/71, pulse of 64. He is alert and oriented x3, he is in no apparent distress. Head, ears, eyes, nose and throat: Normocephalic, atraumatic. Sclerae anicteric. Mucous membranes are moist. Lungs: Clear to auscultation bilaterally. Abdomen is soft, nondistended, tender at the right upper quadrant site extending towards the costal margin on the right side. No deformity is appreciated. No masses or hernias are noted. No CVA tenderness. Pelvis is stable. I did not examine his back. Rectal exam was not performed and extremities show no cyanosis, clubbing or edema. LABORATORY DATA/DIAGNOSTIC STUDIES: Patient's labs are reviewed, show white count 6.6, hematocrit went from 42 to 41 over the course of his admission. INR is less than 1. Chemistry panel within normal limits with the exception of a T- bili which is 2.3. CT scan reviewed of the abdomen and pelvis and chest. IMPRESSION: A 42-year-old gentleman 1 day status post snowboard accident with T12 burst fracture for a planned surgical intervention with spine surgery department. No additional evidence of abdominal trauma at this point. I believe the patient most likely is suffering with pain secondary to the accident as we would see on the day 1 following a fall like this. This was overall not a high speed injury and I feel the patient should most likely go forward with the neurosurgery procedure. Patient does have a mild elevation of his T. bili, it has risen, this may represent some injury and for this reason, I would like to obtain an ultrasound of the liver to check for fluid. If there is fluid in this site or in the pelvis, then the patient may be suffering with some hemoperitoneum and may require additional workup including CT scan. We would get a chest x-ray to rule out effusion in the chest, although I think this is unlikely. He can get an EKG for his chest pain. If there are no EKG changes and if there are no other changes, then I believe the patient should proceed with spinal surgery and will be cleared from my standpoint. This was discussed with the neurosurgery department as well as with the anesthesia department. TIME SPENT: Overall, 45 minutes was spent with patient going over the plan and also reviewing charts. [id number]/[facility] #: [id number] RAVINDER
[2017-10-03] MEDS ORDERED: HYDROmorphone INJ* 2 MG/ML CARPUJECT SYRINGE ONE (17:50)
[2017-10-03] MEDS: HYDROmorphone INJ* 1 MG/ML CARPUJECT SYRINGE IV PRN ×2 (17:57→18:05)
--- NOTE | 2017-10-03 18:31 | PN ---
Progress Note - Progress Note Date of Service: 10/03/17 SOAP: Subjective: []Patient seen earlier today. No complains ON. Objective: []AAOx3 KERVIN, CN II-XII grossly intact, Motor 5/5 all extremities Sensory grossly intact to light touch. BS equal bilaterally. S1,2 audible rythmic, no murmors Abdominal sounds wnl, Abdomen, soft, no tender, except mild tenderness rUQ. Assessment: []42 yom snowboarding accident, T12 fracture. Plan: []MRI of Thoracic spine confirmed T12 fracture with minimal retropulsion. CT/MRI c spine without evidence of injury, Discussed with Dr Infante earlier. No signs of trauma in CT C/A/P. Patient was seen by Dr Vasquez regarding RUQ tenderness, U/S , CXR, EKG neg. appreciated Dr Vasquez for input and clearance. Patient underwent T10-L2 posterolateral fusion and instrumentation. Tolerated procedure well. In Recovery Xavi well, Sensory grossly intact to light touch. Su Mancia MD
[2017-10-03] MEDS ORDERED: Metoclopramide IV* 5 MG/ML 2 ML VIAL ONE (18:43)
[2017-10-03] MEDS: Metoclopramide IV* 5 MG/ML 2 ML VIAL IV PRN (18:45)
--- NOTE | 2017-10-03 19:59 | PN ---
Progress Note - Progress Note Date of Service: 10/03/17 SOAP: Subjective: []Patient on regular floor. No complains of pain. Tolerated procedure well. Objective: []VSS AAOx3 CNII-XII grossly intact. Motor 5/5 all extremities. Sensory grossly intact to light touch. Assessment: []42 yom POD#0 T10-L2 posterolateral fusion for T12 # Plan: []Monitor VS, Neurochecks. Monitor PETER output. OOB with assistance. PT/OT IS. Su Mancia MD
[2017-10-03] MEDS: Morphine INJ* 2 MG/ML 1 ML CARPUJECT IV SCH ×2 (20:00→22:19)
[2017-10-04] MEDS: HYDROmorphone INJ* 2 MG/ML CARPUJECT SYRINGE IV SLOW PU PRN ×6 (00:30→21:59)
[2017-10-04] MEDS: Morphine INJ* 2 MG/ML 1 ML CARPUJECT IV SCH ×6 (00:36→07:44)
[2017-10-04] MEDS: Metoclopramide IV* 5 MG/ML 2 ML VIAL IV PRN ×3 (00:37→21:54)
[2017-10-04] MEDS ORDERED: Morphine INJ* 2 MG/ML 1 ML CARPUJECT IV PRN (09:13)
[2017-10-04] MEDS: HYDROcodone/ACETAMIN 5-325 MG* 1 TAB PO PRN ×4 (09:39→21:54)
--- NOTE | 2017-10-04 14:48 | OP ---
DATE OF OPERATION: 10/03/17 - ROOM #341 DATE OF : 75 SURGEON: Felix Mancia MD CO-SURGEON: Quintin Rosado MD NOTE: Operation was done with two attending physicians because of the complexity of the case. ANESTHESIA: General. PRE-OP DIAGNOSIS: T12 burst fracture. POST-OP DIAGNOSIS: T12 burst fracture. OPERATIVE PROCEDURE: Patient underwent a T10-L2 posterior pedicle screw instrumentation and posterolateral fusion with stereotactic intraoperative navigation. ESTIMATED BLOOD LOSS: 75 cc. COMPLICATIONS: None. SUMMARY: Patient is a very pleasant 42-year-old gentleman with reported history of fall while snowboarding. He fell on his back and CT scan findings revealed a T12 burst fracture with vertical split features and retropulsion into the canal. The patient, after discussion about nonoperative and operative treatment options as well as expectation, limitation, possible complications of the procedure, was offered the option of posterior thoracolumbar fusion. We discussed the details with the patient and his regarding complications including bleeding, infection, risk of injury to adjacent structures, paralysis , , need for additional procedures, anesthesia risk. DICTATION ENDS ABRUPTLY [id number]/[facility] #: [id number] MTDD
--- NOTE | 2017-10-04 14:56 | OP ---
DATE OF OPERATION: 10/03/17 - ROOM #341 DATE OF : 75 SURGEON: Felix Mancia MD. CO-SURGEON: Quintin Rosado MD NOTE: Operation was done with two attending physicians because of the complexity of the case. ANESTHESIA: General. PRE-OP DIAGNOSIS: T12 fracture. POST-OP DIAGNOSIS: T12 fracture. OPERATIVE PROCEDURE: The patient underwent a T10-L2 posterolateral fusion with pedicle screw instrumentation T10, T11, L1 and L2 with DBM putty and intraoperative stereotactic navigation. ESTIMATED BLOOD LOSS: 75 cc. COMPLICATIONS: None. SUMMARY: The patient is a very pleasant 42-year-old gentleman who was diagnosed with T12 burst fracture with canal retropulsion as well as split component, after a reported fall, while snowboarding. After explaining nonoperative and operative treatment options, the patient was offered the option of surgical intervention in the form of a posterior thoracolumbar fusion. After explaining expectation, limitations, possible complications of the procedure with complications including not limited to bleeding, infection, risk of injury to adjacent structures, paralysis, , need for additional procedure, anesthesia risk, blindness, cancer, instability, hardware failure, adjacent level disease with pseudoarthrosis, proximal junctional kyphosis, chronic pain and need for additional procedures in the future, anesthesia risks , the patient was agreeable to proceed with surgery. Informed consent was obtained. The patient and his understood that his condition may not improve and in fact may get worse after the surgery and that he may need to have additional procedures in the future. They understood that the operative plan may be modified according to the intraoperative findings and conditions. Prior to surgery, Dr Avina kindly examined the patient to ensure that no other injuries were present. DESCRIPTION OF PROCEDURE: The patient was brought to the operating room, was placed on general anesthetic by the anesthesia team. He was carefully positioned prone on Alexis table and all bony prominences were meticulously padded. His skin was prepped and draped in a sterile fashion. After appropriate surgical pause and patient identification, a midline incision was marked on the skin above the spinous processes of T9-L3. After infiltrating the skin with local anesthetic, a #10 surgical blade was used to incise the skin. The incision was carried down to the dorsal fascia with Bovie cautery. Self-retaining retractor was introduced right into the field and the dorsal fascia was divided in both sides of midline with Bovie cautery. The paraspinal musculature was elevated with Bovie cautery and periosteal elevator and self- retaining retractors were introduced further into the field. The lamina as well as the transverse processes were gently exposed and after securing the navigation star on the spinous process of L3, intraoperative CT was obtained with O-arm. The patient's data was transferred into the navigation platform and under stereotactic navigation and confirmation with AP fluoroscopy, the pedicles of L2, L1, T11 and T10 were cannulated and SoleCellPlytronic 6.5 x 45 pedicle screws were inserted. Intraoperative fluoroscopic imaging as well as O- arm imaging performed, and excellent placement of the hardware was confirmed with slightly medial position of the right T10 without breach into the spinal canal. It was elected to reposition the screw slightly laterally and after repositioning, O-arm imaging confirmed excellent placement of all hardware. The wound was copiously irrigated and after confirmation of meticulous hemostasis, the transverse processes and all exposed bony surfaces were carefully decorticated with high speed drill. DBM putty was used for bone grafting for posterolateral fusion between T10-L2. Two PETER drains were placed into the wound and were tunneled through separate stab wound incisions. The wound was then closed by layers with 0 interrupted sutures to approximate the dorsal fascia, 2-0 interrupted Vicryl sutures to approximate the subcutaneous tissue while the skin was covered with Dermabond. In the end of the procedure, all counts were reported to be correct. The patient remained hemodynamically stable throughout the case. At the end of the procedure, the patient was turned supine, was extubated and was transferred to Recovery in excellent condition, moving all extremities very well. The case was done with 2 attending physicians because of the complexity of the case. [id number]/[facility] #: [id number] RAVINDER
[2017-10-04] MEDS: Calcium Carbonate CHEW TAB* 500 MG (TUMS) PO PRN ×2 (17:37→21:52)
[2017-10-05] MEDS: HYDROcodone/ACETAMIN 5-325 MG* 1 TAB PO PRN ×4 (02:17→15:29)
[2017-10-05] MEDS: HYDROmorphone INJ* 2 MG/ML CARPUJECT SYRINGE IV SLOW PU PRN ×4 (02:18→23:16)
[2017-10-05] MEDS ORDERED: Magnesium Hydroxide LIQ* 30 ML UDC ONE (10:54)
[2017-10-05] MEDS: Magnesium Hydroxide LIQ* 30 ML UDC PO PRN ×2 (10:55→17:46)
[2017-10-05] MEDS: Docusate CAP* 100 MG PO SCH ×2 (11:01→20:22)
[2017-10-05] MEDS: Cyclobenzaprine TAB* 10 MG PO PRN ×2 (13:59→20:21)
--- NOTE | 2017-10-05 18:04 | PN ---
Progress Note - Progress Note Date of Service: 10/05/17 SOAP: Subjective: []POD # 2 C/O muscle spasms,incisional pain Still with moderate drain output Pt resting,requested not to be disturbed per nurse Objective: []Neuro intact Moderate drain output Assessment: [] Satis post op course Plan: []Cont to increase activity
[2017-10-05] MEDS: oxyCODONE/Acetamin 5/325 MG* TAB PO PRN (20:16)
[2017-10-06] MEDS: oxyCODONE/Acetamin 5/325 MG* TAB PO PRN ×6 (00:19→21:29)
[2017-10-06] MEDS: Cyclobenzaprine TAB* 10 MG PO PRN ×3 (05:17→21:29)
[2017-10-06] MEDS: HYDROmorphone INJ* 2 MG/ML CARPUJECT SYRINGE IV SLOW PU PRN (06:21)
[2017-10-06] MEDS ORDERED: Fluconazole 100 MG TAB* TAB PO ONE (07:42)
--- NOTE | 2017-10-06 07:46 | PN ---
Progress Note - Progress Note Date of Service: 10/06/17 SOAP: Subjective: []Feels better Up ambulating this AM Still with some muscular pain Objective: []Wound looks good Drainage decreased Drains removed Assessment: []Satis post op course Plan: []D/C per Dr. Naidu
[2017-10-06] MEDS: Docusate CAP* 100 MG PO SCH ×2 (08:49→21:29)
[2017-10-06] MEDS: Magnesium Hydroxide LIQ* 30 ML UDC PO PRN ×2 (09:03→17:44)
[2017-10-06] MEDS ORDERED: Morphine INJ* 2 MG/ML 1 ML CARPUJECT IV PRN (14:49)
[2017-10-06] MEDS: Calcium Carbonate CHEW TAB* 500 MG (TUMS) PO PRN (22:33)
[2017-10-07] MEDS ORDERED: Morphine INJ* 2 MG/ML 1 ML CARPUJECT IV PRN (00:08)
--- NOTE | 2017-10-07 00:43 | PN ---
Progress Note - Progress Note Date of Service: 10/07/17 SOAP: Subjective: []No events ON. Patient on regular floor. No complains of pain. Ambulates, Voids , Flatus +. Wants to go home. Drains removed yesterday. Objective: []VSS, Afebrile. Wound soft, clean, dry. AAOx3 CNII-XII grossly intact. Motor 5/5 all extremities. Sensory grossly intact to light touch. Assessment: []42 yom POD#4 T10-L2 posterolateral fusion for T12 # Plan: []Monitor VS, Neurochecks. OOB as tolerated. PT/OT XR of T/L spine in am DC planning. Su Mancia MD
[2017-10-07] MEDS: oxyCODONE/Acetamin 5/325 MG* TAB PO PRN ×6 (01:39→22:13)
[2017-10-07] MEDS: Cyclobenzaprine TAB* 10 MG PO PRN ×2 (05:46→12:02)
[2017-10-07] MEDS ORDERED: Ibuprofen TAB* 600 MG ONE (08:28)
[2017-10-07] MEDS: Docusate CAP* 100 MG PO SCH ×2 (08:39→19:55)
[2017-10-07] MEDS: Magnesium Hydroxide LIQ* 30 ML UDC PO PRN (08:39)
[2017-10-07] MEDS: Ibuprofen TAB* 600 MG PO PRN ×2 (08:40→16:07)
--- NOTE | 2017-10-07 09:01 | RAD ---
INDICATION: Postsurgical evaluation following posterior fixation to treat traumatic T12 vertebral body fracture. COMPARISON: Lumbar spine radiograph October 02, 2017 TECHNIQUE: 3 views of the thoracic spine and 3 views of the lumbar spine were obtained. FINDINGS: The patient is status post transpedicular posterior ruiz fixation of T10, T11, L1 and L2. The vertebral bodies are appropriately aligned in the AP and lateral projections. There is shortening of the T12 vertebral body consistent with the compression fracture seen on prior imaging. IMPRESSION: Anatomic alignment of transpedicular posterior ruiz fixation involving the lower thoracic and upper lumbar spine.
[2017-10-07] MEDS: Calcium Carbonate CHEW TAB* 500 MG (TUMS) PO PRN (15:07)
--- NOTE | 2017-10-07 19:33 | PN ---
Progress Note - Progress Note Date of Service: 10/07/17 SOAP: Subjective: []No events ON. Patient on regular floor. No complains of pain. Ambulates, Voids , Flatus +. Wants to go home. Objective: []VSS, Afebrile. Wound soft, clean, dry. AAOx3 CNII-XII grossly intact. Motor 5/5 all extremities. Sensory grossly intact to light touch. Assessment: []42 yom POD#4 T10-L2 posterolateral fusion for T12 # Plan: []Monitor VS, Neurochecks. OOB as tolerated. PT/OT XR of T/L spine revealed good placement of hardware, good alignment of spine. Will change flexeril to valium. DC planning. Su Mancia MD
[2017-10-07] MEDS ORDERED: Diazepam TAB(*) 5 MG ONE (19:52)
[2017-10-07] MEDS: Diazepam TAB(*) 5 MG PO PRN (19:55)
[2017-10-08] MEDS: Ibuprofen TAB* 600 MG PO PRN ×3 (00:06→16:08)
[2017-10-08] MEDS: oxyCODONE/Acetamin 5/325 MG* TAB PO PRN ×4 (02:12→14:14)
[2017-10-08] MEDS: Diazepam TAB(*) 5 MG PO PRN ×2 (04:02→12:21)
[2017-10-08] MEDS ORDERED: HYDROmorphone TAB* 2 MG PO PRN (04:44)
[2017-10-08] MEDS ORDERED: Omeprazole CAP* 20 MG PO SCH (06:00)
[2017-10-08] MEDS: Docusate CAP* 100 MG PO SCH (08:27)
--- NOTE | 2017-10-08 14:10 | RAD ---
HISTORY: Fall, closed head injury COMPARISONS: January 14, 2015 TECHNIQUE: Multiple contiguous axial CT scans were obtained of the head without intravenous contrast. FINDINGS: HEMORRHAGE/INFARCT: There is no hemorrhage or acute infarct. MASSES/SHIFT: There is no mass or shift. EXTRA-AXIAL SPACES: There are no extra-axial fluid collections. SULCI AND VENTRICLES: The sulci and ventricles are normal in size and position for the patient's stated age. CEREBRUM: There are no focal parenchymal abnormalities. BRAINSTEM: There are no focal parenchymal abnormalities. CEREBELLUM: There are no focal parenchymal abnormalities. VESSELS: The vessels are grossly normal. PARANASAL SINUSES: The paranasal sinuses are clear. ORBITS: The orbits are unremarkable. BONES AND SOFT TISSUE: No bone or soft tissue abnormalities are noted. OTHER: None IMPRESSION: NO ACUTE INTRACRANIAL PATHOLOGY.
[2017-10-08 15:40] VITALS: BP 123/98
--- NOTE | 2017-10-08 16:05 | PN ---
Progress Note - Progress Note Date of Service: 10/08/17 SOAP: Subjective: []No events ON. No complaints of pain. Ambulates, Voids, Flatus +. Wants to go home. Valium helped with muscle spasms. No need for IV meds ON. Objective: []VSS, Afebrile. Wound soft, clean, dry. AAOx3 CNII-XII grossly intact. Motor 5/5 all extremities. Sensory grossly intact to light touch. Assessment: []42 yom POD#5 T10-L2 posterolateral fusion for T12 # Plan: [] DC planning. Full instructions given to patient. Su Mancia MD
--- NOTE | 2017-10-10 13:46 | DS ---
DISCHARGE SUMMARY: DATE OF ADMISSION: 10/02/17 DATE OF DISCHARGE: 10/08/17 PROCEDURE: The patient underwent a T10-L2 posterolateral fusion with T10, T11, L1, L2 pedicle screw fixation. SUMMARY: The patient is a very pleasant 42-year-old gentleman, who was reported to have sustained an accident while snowboarding. The patient landed on his back and was complaining of severe back pain . The patient had no loss of consciousness. He came to the emergency room, where he was diagnosed w ith CT scan of the chest, abdomen, and pelvis with a T12 burst fracture with coronal split component. The patient was offered the option of surgical intervention after explaining nonoperative and opera tive treatment options as well as risks and benefits. After explaining expectations, indications, an d possible complications of the procedure with complication including but not limited to bleeding, in fection, risk of damage to adjacent structures, paralysis, , need for additional procedure, anes thesia risk, stroke, blindness, cancer, instability, , adjacent level disease, proximal junctio nal kyphosis, anesthesia risk. The patient and his were agreeable to proceed with surgery. Inf ormed consent was obtained. The patient was brought to the operating room on 10/07/17 and he underwe nt the above procedure. He tolerated the procedure well. He was able to be extubated and was transf erred to Recovery in excellent condition, moving all extremities. He was transferred to the regular floor. He was able to ambulate on postoperative day 1 with good pain control. He remained neurovasc ularly intact and he was able to have the ability to ambulate, void, and take p.o. His pain was unde r control with p.o. pain medication and on 10/08/17, was found to be ready to be discharged home. DISPOSITION: Home. Discharge instructions were given to the patient. The patient was given p.o. pain medication and was advised to follow up in our office for a wound check in approximately 7 to 10 days. Full instructio ns given to the patient. [id number]/[facility] #: [id number]
== END 2017-10-08 16:45 | disposition home or self-care (01) | DRG 304 ==
LOC: ED 12:54 → SSU 21:17
PROVIDERS: ADMIT Neurological Surgery; ATTEND Neurological Surgery
PROC: 0RGA0K1 Fusion of Thoracolumbar Vertebral Joint with Nonautologous Tissue Substitute, Posterior Approach, Posterior Column, Open Approach (ICD-10-PCS; principal; 2017-10-02)
PROC: 8E0WXBZ Computer Assisted Procedure of Trunk Region (ICD-10-PCS; 2017-10-02)
PROC: 0RG70K1 Fusion of 2 to 7 Thoracic Vertebral Joints with Nonautologous Tissue Substitute, Posterior Approach, Posterior Column, Open Approach (ICD-10-PCS; 2017-10-02)
PROC: 0SG00K1 Fusion of Lumbar Vertebral Joint with Nonautologous Tissue Substitute, Posterior Approach, Posterior Column, Open Approach (ICD-10-PCS; 2017-10-02)
DX: S22.081A Stable burst fracture of T11-T12 vertebra, initial encounter for closed fracture (principal); J45.909 Unspecified asthma, uncomplicated; M47.892 Other spondylosis, cervical region; R74.8 Abnormal levels of other serum enzymes; Z91.018 Allergy to other foods; Z72.89 Other problems related to lifestyle; Y92.9 Unspecified place or not applicable; V00.311A Fall from snowboard, initial encounter; M62.838 Other muscle spasm; Y93.23 Activity, snow (alpine) (downhill) skiing, snowboarding, sledding, tobogganing and snow tubing
CPT/HCPCS: 36415; 70450; 71045; 71260; 72070; 72100; 72125; 72141; 72146; 74177; 76001; 76705; 80053; 85025; 85610; 86850; 86900; 86901; 93005; 99285; A9270-GY; C1713; C1776; C9359; J1100; J1170; J2001; J2250; J2270; J2405; J2704; J2710; J2765; J3010; Q9967

== ENCOUNTER 2017-12-16 21:43 | Emergency (ER) | payer BC ==
[2017-12-17 01:44] LABS: ABS Basophils 0 10^3/ul (0-0.2); ABS Eosinophils 0.5 10^3/ul (0-0.6); ABS Lymphocytes 2.2 10^3/ul (1.0-4.8); ABS Monocytes 0.4 10^3/ul (0-0.8); ABS Neutrophils 3.1 10^3/ul (1.5-7.7); ABS Nucleated RBC 0 10^3/ul; Eosinophil % 7.5 % (0-6); Hematocrit 39 % (42-52); Hemoglobin 13.3 g/dl (14.0-18.0); Lymphocyte % 35.5 % (25-47); Mean Corpuscular HGB Conc 34 g/dl (31-36); Mean Corpuscular Hemoglobin 30 pg (27-31); Mean Corpuscular Volume 89 fL (80-94); Mean Platelet Volume 8.5 um3 (7.4-10.4); Nucleated Red Blood Cells % 0.1; Platelet Count 226 10^3/ul (150-450); Red Blood Count 4.37 10^6/ul (4.0-5.4); Red Cell Distribution Width 14 % (10.5-15); White Blood Count 6.2 10^3/ul (3.5-10.8)
[2017-12-17 02:05] LABS: EGFR Non-African American 84.9 (>60)
[2017-12-17] MEDS ORDERED: Pregabalin CAP(*) 50 MG PO ONE (03:38)
--- NOTE | 2017-12-17 03:57 | ED ---
Jt Roth Gabriel, scribed for Iram Richard MD on 12/17/17 at 0131 . Back Pain - HPI Summary HPI Summary: This patient is a 42 year old M [place] [facility] [place]est[place] that has been worse for the past couple days. Pt had back surgery 2 months ago and since then he has right sided parasthesia but it has gotten worse recently. Pt had surgery for acute trauma that occurred while snowboarding. He is seeing his PCP and neurology for this. The patient rates the pain 6/10 in severity. - History of Current Complaint Chief Complaint: EDGeneral Stated Complaint: BACK PAIN Time Seen by Provider: 12/17/17 00:34 Hx Obtained From: Patient Onset/Duration: Still Present, Worse Since Onset/Duration: Still Present Timing: Constant Severity Initially: Moderate Severity Currently: Moderate Pain Intensity: 6 Pain Scale Used: 0-10 Numeric Associated Signs And Symptoms: Positive: Negative - fever - Allergies/Home Medications Allergies/Adverse Reactions: Allergies Allergy/AdvReac Type Severity Reaction Status Date / Time nut - unspecified Allergy Severe Anaphylatic Verified 10/02/17 15:16 Shock Home Medications: Home Medications NK [No Home Medications Reported] 12/17/17 [History Confirmed 12/17/17] PMH/Surg Hx/FS Hx/Imm Hx Endocrine/Hematology History: Denies: Hx Anticoagulant Therapy, Hx Diabetes, Hx Thyroid Disease Cardiovascular History: Denies: Hx Auto Implanted Cardiovert Defib, Hx Cardiac Arrest, Hx Cardiomegaly, Hx Congestive Heart Failure, Hx Deep Vein Thrombosis, Hx Hypertension, Hx Myocardial Infarction, Hx Pacemaker/ICD Respiratory History: Reports: Hx Asthma - As a child--has not used an inhaler in "a while." Denies: Hx Chronic Obstructive Pulmonary Disease (COPD), Hx Lung Cancer, Hx Pneumonia, Hx Pulmonary Embolism GI History: Reports: Hx Irritable Bowel Denies: Hx Crohn's Disease, Hx Gall Bladder Disease, Hx Gastrointestinal Bleed, Hx Ulcer, Hx Urosepsis History: Denies: Hx Kidney Stones, Hx Renal Disease Musculoskeletal History: Reports: Hx Arthritis - prearthritic L big toe, Hx Back Problems - LBP, Hx Tendonitis - L arm Sensory History: Reports: Hx Contacts or Glasses - glasses Denies: Hx Hearing Aid Opthamlomology History: Reports: Hx Contacts or Glasses - glasses Neurological History: Denies: Hx Dementia, Hx Migraine, Hx Seizures, Hx Transient Ischemic Attacks (TIA) Comment Only: Other Neuro Impairments/Disorders - Lyme Psychiatric History: Denies: Hx Anxiety, Hx Attention Deficit Hyperactivity Disorder, Hx Depression, Hx Panic Disorder, Hx Schizophrenia, Hx Bipolar Disorder - Surgical History Surgery Procedure, Year, and Place: lumbar fusion Infectious Disease History: No Infectious Disease History: Denies: History Other Infectious Disease, Traveled Outside the [place] in Last 30 Days - Family History Known Family History: Negative: Cardiac Disease, Hypertension, Diabetes, Seizure Disorder - Social History Alcohol Use: Occasionally Substance Use Type: Reports: None Smoking Status (MU): Never Smoked Tobacco Review of Systems Negative: Fever Positive: Paresthesia All Other Systems Reviewed And Are Negative: Yes Physical Exam - Summary Physical Exam Summary: VITAL SIGNS: Reviewed. GENERAL: Patient is a well-developed and nourished male who is lying comfortable in the stretcher. Patient is not in any acute respiratory distress. HEAD AND FACE: No signs of trauma. No ecchymosis, hematomas or skull depressions. No sinus tenderness. EYES: PERRLA, EOMI x 2, No injected conjunctiva, no nystagmus. EARS: Hearing grossly intact. Ear canals and tympanic membranes are within normal limits. MOUTH: Oropharynx within normal limits. NECK: Supple, trachea is midline, no adenopathy, no JVD, no carotid bruit, no c- spine tenderness, neck with full ROM. CHEST: Symmetric, no tenderness at palpation LUNGS: Clear to auscultation bilaterally. No wheezing or crackles. CVS: Regular rate and rhythm, S1 and S2 present, no murmurs or gallops appreciated. ABDOMEN: Soft, non-tender. No signs of distention. No rebound no guarding, and no masses palpated. Bowel sounds are normal. EXTREMITIES: FROM in all major joints, no edema, no cyanosis or clubbing. NEURO: Alert and oriented x 3. No acute neurological deficits. Speech is normal and follows commands. SKIN: Dry and warm Triage Information Reviewed: Yes Vital Signs On Initial Exam: Initial Vitals Temp Pulse Resp BP Pulse Ox 98.3 F 79 16 150/87 98 12/16/17 21:54 12/16/17 21:54 12/16/17 21:54 12/16/17 21:54 12/16/17 21:54 Vital Signs Reviewed: Yes Diagnostics - Vital Signs Vital Signs Temp Pulse Resp BP Pulse Ox 12/17/17 00:29 66 134/96 97 12/16/17 21:54 98.3 F 79 16 150/87 98 - Laboratory Result Diagrams: 12/17/17 01:38 12/17/17 01:38 Lab Statement: Any lab studies that have been ordered have been reviewed, and results considered in the medical decision making process. - CT CT brain CT Interpretation Completed By: Radiologist - normal exam ED physician has reviewed this radiology report. Back Pain Course/Dx - Course Assessment/Plan: This patient is a 42 year old M presenting [place] [facility] [place] sided paraest[place] that has been worse for the past couple days. Pt had back surgery 2 months ago and since then he has right sided parasthesia but it has gotten worse recently. Pt had surgery for acute trauma that occurred while snowboarding. He is seeing his PCP and neurology for this. The patient rates the pain 6/[address] Brain reveals, per radiologist, normal exam. Test results with no significant abnormalities. Patient will be discharged and follow up from PCP. The patient is agreeable with this plan. - Diagnoses Provider Diagnoses: Numbness Discharge - Sign-Out/Discharge Documenting (check all that apply): Discharge/Admit/Transfer - Discharge Plan Condition: Stable Disposition: HOME Patient Education Materials: Paresthesia (ED) Referrals: Gloria Cerna MD [Primary Care Provider] - 3 Days Additional Instructions: RETURN TO THE ER FOR ANY NEW OR WORSENING SYMPTOMS The documentation as recorded by the Jt briggs Gabriel accurately reflects the service I personally performed and the decisions made by me, Iram Richard MD.
[2017-12-17 04:01] VITALS: BP 111/89
--- NOTE | 2017-12-17 08:11 | RAD ---
INDICATION: Numbness. COMPARISON: Correlation is made with a prior CT of the brain from October 08, 2017. TECHNIQUE: Contiguous axial sections of the brain were obtained from the skull base to the vertex without contrast. FINDINGS: The ventricles, cisterns and sulci are within normal limits. No significant focal abnormality or mass effect is seen. There is no evidence for hemorrhage. No significant focal osseous abnormality is seen. The visualized portion of the paranasal sinuses and mastoid air cells appear clear. IMPRESSION: NO EVIDENCE FOR ACUTE INTRACRANIAL ABNORMALITY.
== END 2017-12-17 03:59 | disposition home or self-care (01) ==
LOC: ED 21:43
DX: R20.0 Anesthesia of skin (principal); R20.2 Paresthesia of skin
CPT/HCPCS: 36415; 70450; 80053; 85025; 99283; A9270-GY

== ENCOUNTER 2018-10-31 07:08 | Emergency (ER) | payer BC ==
[2018-10-31 07:21] VITALS: BP 123/75
[2018-10-31] MEDS ORDERED: Tetracaine 0.5% OPTH.SOL 4 ML* 1 DROP BTL RIGHT EYE ONE (07:48)
[2018-10-31] MEDS ORDERED: Ibuprofen TAB* 600 MG PO ONE (07:48)
[2018-10-31] MEDS ORDERED: Fluorescein Sodium TOPICAL* 1 MG TEST STRIP OPHTHALMIC ONE (07:48)
--- NOTE | 2018-10-31 07:56 | UC ---
Eye Complaint HPI - HPI Summary HPI Summary: 43-year-old male comes with a [place] chief complaint of right eye irritation upper eyelid swelling and drainage. 2 days ago the eye felt irritated and he wasn't sure if he had an eyelash documented did not find any eyelash in the meantime things as gotten worse. His right upper eyelids now swollen then he's having some purulent drainage. No known trauma. Patient has a complaint of right shoulder pain that started about 2 weeks ago after he was hiking and going up and down steep trails where he needed to use his arms extensively. Pain is right in the shoulder joint. Pain is worse with range of motion with palpation. There is some decreased range of motion secondary to pain. No weakness no numbness. No neck pain. No radiation down arm. - History of Current Complaint Chief Complaint: UCEye Stated Complaint: EYE ISSUE Time Seen by Provider: 10/31/18 07:37 Pain Intensity: 3 - Allergies/Home Medications Allergies/Adverse Reactions: Allergies Allergy/AdvReac Type Severity Reaction Status Date / Time nut - unspecified Allergy Severe Anaphylatic Verified 10/31/18 07:21 Shock PMH/Surg Hx/FS Hx/Imm Hx Previously Healthy: Yes Other History Of: Negative For: HIV, Hepatitis B, Hepatitis C, Anticoagulant Therapy - Surgical History Surgical History: Yes Surgery Procedure, Year, and Place: lumbar fusion - Family History Known Family History: Positive: None Negative: Cardiac Disease, Hypertension, Diabetes, Seizure Disorder - Social History Alcohol Use: Occasionally Substance Use Type: None Smoking Status (MU): Never Smoked Tobacco Review of Systems All Other Systems Reviewed And Are Negative: Yes Constitutional: Positive: Negative Skin: Positive: Negative Eyes: Positive: Drainage, Eye Redness ENT: Positive: Negative Respiratory: Positive: Negative Cardiovascular: Positive: Negative Gastrointestinal: Positive: Negative Motor: Positive: Decreased ROM Neurovascular: Positive: Negative Musculoskeletal: Positive: Decreased ROM, Other: - SEE HPI Neurological: Positive: Negative Psychological: Positive: Negative Is Patient Immunocompromised?: No Physical Exam Triage Information Reviewed: Yes Appearance: Well-Appearing, No Pain Distress, Well-Nourished Vital Signs: Initial Vital Signs Temp 97.5 F 10/31/18 07:15 Pulse 65 10/31/18 07:15 Resp 18 10/31/18 07:15 BP 123/75 10/31/18 07:15 Pulse Ox 97 10/31/18 07:15 Vital Signs Reviewed: Yes Eyes: Positive: Conjunctiva Inflamed - rt, Discharge - rt, Other: - No foreign body seen in the right eye on examination with regular light and also with the Talbert lamp and fluorescein stain. The upper eyelid is swollen. No corneal abrasion seen. No hyphema. Parallel EOMI. Neck: Positive: Supple, Nontender Respiratory: Positive: Lungs clear, Normal breath sounds, No respiratory distress Cardiovascular: Positive: RRR Musculoskeletal: Positive: Other: - Normal bilateral radial pulses. Normal capillary refill bilaterally. Fingers wrist elbows have full range of motion of motion full-strength. No sensation deficit. Neck is nontender to palpation and full range of motion. Patient is tender to palpation in the anterior right shoulder joint. Shoulder Extension goes up to 160 bilaterally. Abduction 100 bilaterally. Internal rotation T6 on the left and patient is unable to on the right. Neurological: Positive: Alert, Muscle Tone Normal Psychological Exam: Normal Psychological: Positive: Age Appropriate Behavior Skin Exam: Normal Eye Complaint Course/Dx - Course Course Of Treatment: Patient Name: KARISHMA PERSON Medical Record#: [id number] Ordering Physician: Nilesh Lopez MD Acct.#: [id number] : 1975 Age: 43 Sex: M Location: [facility] Exam Date: 10/31/18746 ADM Status: REG ER Order Information: SHOULDER RIGHT 2+ VWS Accession Number: [id number] CPT: 93888 INDICATION: Right shoulder pain, overuse injury. TECHNIQUE: 4 views of the right shoulder were obtained. FINDINGS: The bones are in normal alignment. No fracture is seen. Joint spaces appear maintained. IMPRESSION: NO EVIDENCE OF FRACTURE. <Electronically signed by Alirio Infante MD in OV> 10/31/18 0806 I discussed the x-ray report with the patient. For the shoulder the plan is ice range of motion anti-inflammatories and follow-up with sports medicine. Most probable cause of the right eye symptoms are an upper eyelid stye. Going to start tobramycin eyedrops and also warm compresses. Plan is to follow-up with ophthalmology if not completely improved or worsening. - Differential Dx/Diagnosis Provider Diagnosis: Hordeolum externum right upper eyelid, Conjunctivitis, Right shoulder pain Discharge - Sign-Out/Discharge Documenting (check all that apply): Patient Departure All imaging exams completed and their final reports reviewed: Yes - Discharge Plan Condition: Stable Disposition: HOME Prescriptions: Tobramycin 0.3% OPHTH.DELANO* 1 drop RIGHT EYE Q4H #1 btl Patient Education Materials: Stye (ED), Shoulder Pain (ED), Conjunctivitis (ED) Referrals: Gloria Cerna MD [Primary Care Provider] - [facility] [Provider Group] [facility] [Provider Group] Additional Instructions: FOLLOW UP WITH OPHTHALMOLOGY IF YOUR EYE IS NOT COMPLETELY IMPROVED. FOLLOW UP WITH SPORTS MEDICINE FOR YOUR RIGHT SHOULDER. GET REEVALUATED SOONER FOR WORSENING OF YOUR CONDITION OR QUESTIONS OR CONCERNS. - Billing Disposition and Condition Condition: STABLE Disposition: Home
== END 2018-10-31 08:57 | disposition home or self-care (01) ==
LOC: UCEAST 07:08
DX: H00.011 Hordeolum externum right upper eyelid (principal); H10.31 Unspecified acute conjunctivitis, right eye; M25.511 Pain in right shoulder; M70.811 Other soft tissue disorders related to use, overuse and pressure, right shoulder; Y93.01 Activity, walking, marching and hiking; Z91.018 Allergy to other foods
CPT/HCPCS: 99212; A9270-GY; G0463

== ENCOUNTER 2021-05-23 12:17 | Inpatient (IN) ==
[~2021-05-23 12:17] MED LIST: Acetaminophen IV 1 GM/100ML 100 ML IV SCH; Buffered Lidocaine 1% SYRIN 1 ml INTRADERM ONE; Bupivacaine 0.5% SDV PF 30ML VIAL INJ SCH; Dexamethasone IV 4 MG/ML VIAL 1 ml VIAL ONE; Famotidine IV 10 MG/ML 2 ml VIAL (20 mg) IV ONE; Lactated Ringers 1000 ml BAG 1,000 ML IV SCH; Lidocaine 2% PF 5 ML VIAL ONE; Midazolam 5 mg/5 ml VIAL 1 mg/ml 5 ml VIAL (5 mg) ONE; Propofol 10 MG/ML 20 ML BTL ONE; Propofol 10 mg/ml 100 ML BTL 0 ML ONE; Propofol 10 mg/ml 100 ML BTL 100 ML IV SCH; Remifentanil 2 MG VIAL ONE; Rocuronium 50 mg VIAL 10 mg/ml 5 ml VIAL (50 mg) ONE; ceFAZolin VIAL VIAL IVPB SCH; fentaNYL 250 mcg/5 ml 50 MCG/ML 5 ml VIAL (250 MCG) ONE
[2021-05-23] MEDS ORDERED: CEFAZOLIN IVPB ONE (12:59)
[2021-05-23] MEDS ORDERED: Famotidine IV 10 MG/ML 2 ml VIAL (20 mg) ONE (12:59)
[2021-05-23] MEDS ORDERED: NS IVPB ONE (12:59)
[2021-05-23] MEDS ORDERED: Levalbuterol HFA INHALER MDI ONE (13:11)
[2021-05-23] MEDS ORDERED: Succinylcholine 200 mg VIAL 20 mg/ml 10 ml VIAL (200 mg) ONE (13:51)
[2021-05-23] MEDS ORDERED: HYDROmorphone 1 MG/1 ML SYRINGE ONE (14:52)
[2021-05-23] MEDS ORDERED: Ondansetron 4 mg VIAL 2 MG/ML 2 ml VIAL ONE (15:06)
[2021-05-23] MEDS ORDERED: Remifentanil 2 MG VIAL ONE (15:31)
[2021-05-23] MEDS ORDERED: Ketamine HCL 50 mg/ml 10 ml VIAL (500 MG) ONE (15:38)
[2021-05-23] MEDS ORDERED: Ondansetron 4 mg VIAL 2 MG/ML 2 ml VIAL IV PRN ×2 (16:16→17:50)
[2021-05-23] MEDS ORDERED: Naloxone 0.4 mg VIAL 0.4 mg/ml 1 ml VIAL IV PRN (16:16)
[2021-05-23] MEDS ORDERED: fentaNYL 100 mcg/2 ml 50 MCG/ML VIAL IV PRN (16:16)
[2021-05-23] MEDS ORDERED: HYDROmorphone 1 MG/1 ML SYRINGE IV PRN (16:16)
[2021-05-23] MEDS ORDERED: Magnesium Hydroxide LIQ 30 ML UDC PO PRN (20:24)
[2021-05-23] MEDS ORDERED: Albuterol HFA INHALER 8 gm MDI INH PRN (20:26)
[2021-05-23] MEDS: HYDROcodone/ACETAMIN 5/325 mg TAB PO PRN (20:37)
[2021-05-24] MEDS: HYDROcodone/ACETAMIN 5/325 mg TAB PO PRN ×4 (00:25→18:37)
[2021-05-24 06:46] LABS: ABS Lymphocytes 0.8 10^3/ul (1.0-4.8); ABS Monocytes 0.8 10^3/ul (0-0.8); ABS Neutrophils 10.7 10^3/ul (1.5-7.7); Hematocrit 39 % (42-52); Hemoglobin 13.8 g/dL (14.0-18.0); Lymphocyte % 6.5 %; Mean Corpuscular HGB Conc 35 g/dL (31-36); Mean Corpuscular Hemoglobin 32 pg (27-31); Mean Corpuscular Volume 89 fL (80-94); Mean Platelet Volume 8.7 fL (7.4-10.4); Platelet Count 237 10^3/uL (150-450); Red Blood Count 4.39 10^6 /uL (4.18-5.48); Red Cell Distribution Width 13 % (10-15); White Blood Count 12.3 10^3/uL (3.5-10.8)
[2021-05-24 07:07] LABS: Calcium 8.6 mg/dL (8.6-10.3); Potassium 3.9 mmol/L (3.5-5.0)
[2021-05-24] MEDS ORDERED: Senna TAB 8.6 mg TAB PO SCH (21:00)
[2021-05-25] MEDS: HYDROcodone/ACETAMIN 5/325 mg TAB PO PRN ×3 (03:49→12:52)
[2021-05-25] MEDS ORDERED: Fluticasone NASAL SPRAY 50MCG 16 gm SPRAY BTL BOTH NARES SCH (11:00)
[2021-05-25 11:32] VITALS: BP 132/77
== END 2021-05-25 13:57 | disposition home or self-care (01) | DRG 320 ==
LOC: AA 12:17 → INTOOBSV 12:17 → SSU 17:50
PROVIDERS: ADMIT Neurological Surgery; ATTEND Neurological Surgery